=== PATIENT | female | born 1960 | race Caucasian/White ===

== ENCOUNTER 2020-12-20 00:05 | Emergency (ER) | payer MEDICARE, MEDICAID ==
[~2020-12-20] VITALS: Ht 157.5 cm; Wt 113.0 kg
[~2020-12-20 00:05] MED LIST: AMOXICILLIN500 MG PO
[2020-12-20 01:16] LABS: URINE BILIRUBIN - DIPSTICK NEGATIVE (NEGATIVE); URINE BLOOD DIPSTICK NEGATIVE (NEGATIVE); URINE COLOR YELLOW; URINE GLUCOSE - DIPSTICK NEGATIVE (NEGATIVE); URINE KETONE TRACE mg/dL (NEGATIVE); URINE LEUK ESTERASE NEGATIVE (NEGATIVE); URINE PROTEIN - DIPSTICK TRACE mg/dL (NEG-TRACE); URINE SPECIFIC GRAVITY >=1.030; URINE UROBILINOGEN - DIPSTICK 0.2 E.U./dL (0.2)
[2020-12-20 01:21] LABS: URINE NITRITE - DIPSTICK NEGATIVE (Negative)
[2020-12-20 01:24] LABS: HEMATOCRIT 37.6 % (37.0-47.0); IMMATURE GRANULOCYTES 0.5 % (0.0-5.0); MEAN CELL VOLUME 90.6 fL CALC (80.0-100.0); MEAN CORPUSCULAR HGB 28.4 pG CALC (26.0-32.0); MEAN CORPUSCULAR HGB CONC 31.4 g/dL CAL (32.0-36.0); NEUT# 4.81 thou/uL (2.00-7.15); RED BLOOD COUNT 4.15 mill/uL (4.20-5.60); RED CELL DISTRI WIDTH 14.9 % (11.5-15.5)
[2020-12-20 01:27] LABS: HEMOGLOBIN 11.8 g/dl (12.0-16.0)
[2020-12-20 01:30] LABS: ALBUMIN 4.4 g/dL (3.2-5.0); ALKALINE PHOSPHATASE 56 u/l (38-126); AMYLASE 57 u/l (30-110); ANION GAP 18 (6-22 (CALC)); BILIRUBIN, TOTAL 0.2 mg/dL (0.0-1.4); BUN 13 mg/dL (7-17); BUN/CREATININE RATIO 21 (12-20 (CALC)); CARBON DIOXIDE 20 mmol/l (22-30); CHLORIDE 101 mmol/l (95-108); CREATININE 0.6 mg/dL (0.5-1.0); GFR > 60 ML/MIN (>=60 (CALC)); GFR FOR AFR.AMER. > 60 ML/MIN (>=60 (CALC)); LIPASE 105 u/l (23-300); POTASSIUM 4.1 mmol/l (3.5-5.1); SGOT/AST 47 u/l (14-36); SODIUM 135 mmol/l (137-146); TOTAL PROTEIN 8.1 g/dL (6.3-8.2)
[2020-12-20 01:41] LABS: MYOGLOBIN 29 ng/mL (0 - 62)
[2020-12-20] MEDS ORDERED: CYCLOBENZAPRINE10 MG PO (02:45)
[2020-12-20] MEDS ORDERED: FIORICET PO (02:45)
[2020-12-20 02:52] VITALS: BP 173/75
== END 2020-12-20 02:52 | disposition home or self-care (01) ==
LOC: ED 00:05
PROVIDERS: Emergency Medicine
DX: M47.26 Other spondylosis with radiculopathy, lumbar region (principal); R51.9 Headache, unspecified; E11.9 Type 2 diabetes mellitus without complications; Z87.442 Personal history of urinary calculi

== ENCOUNTER 2022-07-25 18:18 | Emergency (ER) | payer MEDICARE, MEDICAID ==
[2022-07-25] VITALS (12 sets, daily range): BP systolic 107–167; BP diastolic 62–98
[~2022-07-25] VITALS: Ht 157.5 cm; Wt 90.7 kg
[~2022-07-25 18:18] MED LIST changes: +CYCLOBENZAPRINE10 MG PO; +FIORICET PO
[2022-07-25 19:04] LABS: URINE BILIRUBIN - DIPSTICK NEGATIVE (NEGATIVE); URINE BLOOD DIPSTICK NEGATIVE (NEGATIVE); URINE COLOR YELLOW; URINE GLUCOSE - DIPSTICK NEGATIVE (NEGATIVE); URINE KETONE 40 mg/dL (NEGATIVE); URINE LEUK ESTERASE NEGATIVE (NEGATIVE); URINE PROTEIN - DIPSTICK 100 mg/dL (NEG-TRACE); URINE SPECIFIC GRAVITY 1.025; URINE UROBILINOGEN - DIPSTICK 0.2 E.U./dL (0.2)
[2022-07-25 19:04] LABS: BASO% 0.3 % (0-3); EOS% 0.1 % (0-8); HEMATOCRIT 40.2 % (37.0-47.0); IMMATURE GRANULOCYTES 0.2 % (0.0-5.0); LYMPH% 15.6 % (15-41); MEAN CELL VOLUME 89.1 fL CALC (80.0-100.0); MEAN CORPUSCULAR HGB 28.8 pG CALC (26.0-32.0); MEAN CORPUSCULAR HGB CONC 32.3 g/dL CAL (32.0-36.0); MONO% 5.7 % (2-13); NEUT# 9.23 thou/uL (2.00-7.15); NEUT% 78.1 % (42-76); RED BLOOD COUNT 4.51 mill/uL (4.20-5.60); RED CELL DISTRI WIDTH 13.3 % (11.5-15.5)
[2022-07-25 19:05] LABS: URINE NITRITE - DIPSTICK NEGATIVE (Negative)
[2022-07-25] MEDS ORDERED: NEURONTIN600 MG PO (19:05)
[2022-07-25 19:12] LABS: URINE RBC 0-2 RBC/hpf (0-5); URINE SQUAMOUS EPITHELIAL CELL MODERATE EPI/hpf (0-FEW)
[2022-07-25 19:15] LABS: ALBUMIN 4.9 g/dL (3.2-5.0); ALKALINE PHOSPHATASE 69 u/l (38-126); ANION GAP 13 (6-22 (CALC)); BUN 12 mg/dL (7-17); BUN/CREATININE RATIO 19 (12-20 (CALC)); CARBON DIOXIDE 23 mmol/l (22-30); CHLORIDE 104 mmol/l (95-108); CREATININE 0.6 mg/dL (0.5-1.0); GFR FOR AFR.AMER. > 60 ML/MIN (>=60 (CALC)); GFR OTHER RACES > 60 ML/MIN (>=60 (CALC)); LIPASE 116 u/l (23-300); POTASSIUM 3.7 mmol/l (3.5-5.1); SGOT/AST 30 u/l (14-36); SODIUM 137 mmol/l (137-146); TOTAL PROTEIN 8.5 g/dL (6.3-8.2)
[2022-07-25 19:16] LABS: BILIRUBIN, TOTAL 0.5 mg/dL (0.02-1.3)
[2022-07-25] MEDS ORDERED: REGLAN10 MG PO (21:09)
[2022-07-25] MEDS ORDERED: PROTONIX40 M2 PO (21:09)
== END 2022-07-25 22:24 | disposition home or self-care (01) ==
LOC: ED 18:18
PROVIDERS: Nurse Practitioner
DX: K29.70 Gastritis, unspecified, without bleeding (principal); E11.9 Type 2 diabetes mellitus without complications; Z79.891 Long term (current) use of opiate analgesic
CPT/HCPCS: Q9967; S0164